=== PATIENT | male | born 1975 | race Caucasian/White ===

== ENCOUNTER 2016-06-09 10:09 | Emergency (ER) | payer BC ==
[2016-06-09] MEDS ORDERED: Ondansetron INJ* 2 MG/ML VIAL IV ONE (10:51)
[2016-06-09] MEDS ORDERED: Morphine INJ* 2 MG/ML 1 ML CARPUJECT IV ONE ×2 (10:53→11:46)
[2016-06-09 11:03] LABS: Hematocrit 46 % (42-52); Hemoglobin 15.4 g/dl (14.0-18.0); Mean Corpuscular HGB Conc 34 g/dl (31-36); Mean Corpuscular Hemoglobin 30 pg (27-31); Mean Corpuscular Volume 88 fL (80-94); Mean Platelet Volume 8 um3 (7.4-10.4); Red Blood Count 5.16 10^6/ul (4.0-5.4); Red Cell Distribution Width 13 % (10.5-15); White Blood Count 10.9 10^3/ul (3.5-10.8)
[2016-06-09 11:14] LABS: Albumin 4.6 g/dL (3.2-5.2); BUN/Creatinine Ratio 13.5 (8-20); Calcium 9.4 mg/dL (8.6-10.3); EGFR African American 121.1 (>60); EGFR Non-African American 94.2 (>60); Globulin 2.5 g/dL (2-4); Magnesium 1.9 mg/dL (1.9-2.7); Potassium 4.1 mmol/L (3.5-5.0); Total Bilirubin 0.6 mg/dL (0.2-1.0); Total Protein 7.1 g/dL (6.4-8.9)
--- NOTE | 2016-06-09 11:31 | ED ---
Upper Extremity Pain - HPI Summary HPI Summary: Patient arrives to ED after experiencing a seizure witness at the end by a co- worker in a [id number]. Patient states after the seizure which lasted only a minute or so, patient came out of the [id number] and mentioned he had a seizure and was unable to move his L arm. He stated he was immediately at a 10/ 10 pain. He had never had any surgeries on his extremities and denies anything similiar before. He has seizures at baseline (last one 3 months ago). He takes Keppra twice daily. He mentioned he does not take his medication regularly and often will forget days at a time. Today, he did not take his medication until immediately after his seizure. He denies hitting his head, LAM, facial trauma or eye/ear pain, chest discomfort, SOB, lower extremity weakness, confusion, or memory loss. - History of Current Complaint Chief Complaint: EDShoulderClavicleInj Stated Complaint: PAIN LEFT SHOULDER Hx Obtained From: Patient Onset/Duration: Started Minutes Ago Timing: Constant Severity Initially: Moderate Severity Currently: Severe Pain Location: Shoulder Character: Sharp Aggravating Factor(s): Movement, Lifting, Flexion, Extension, Internal/External Rotation, Abduction, Adduction Alleviating Factor(s): Nothing Associated Signs & Symptoms: Positive: Negative - Risk Factors Non-Orthopedic Risk Factor: Negative DVT Risk Factors: Negative Septic Arthritis Risk Factor: Negative - Allergies/Home Medications Allergies/Adverse Reactions: Allergies Allergy/AdvReac Type Severity Reaction Status Date / Time No Known Allergies Allergy Verified 06/09/16 10:14 PMH/Surg Hx/FS Hx/Imm Hx Previously Healthy: Yes Infectious Disease History: No Infectious Disease History: Denies: Traveled Outside the [place] in Last 30 Days - Social History Occupation: Employed Full-time Lives: With Family Alcohol Use: Occasionally Substance Use Type: Reports: None Smoking Status (MU): Light Every Day Tobacco Smoker Review of Systems - ROS Summary Review of Systems Summary: Constitutional: Patient denies fever, diaphoresis, activity change, appetite change, fatigue and unexpected weight change. HEENT: Head: The patient denies headaches or dizziness. Eyes: The patient denies diplopia, blurry vision, eye pain, eye discharge, photophobia. Throat: The patient denies sore throats or hoarseness. Cardiovascular: The patient denies chest pain, palpitations, syncope, night cramps, or orthostasis. Respiratory: The patient denies cough, sputum production, hemoptysis, dyspnea, wheezing. Genitourinary: Patient denies back pain. Denies other urinary symptoms. Muscles: The patient endorses myalgia, strain and feeling of weakness in L shoulder. Joints: The patient denies arthritis. Neurologic: The patient denies headache, loss of consciousness, facial asymmetry, weakness and numbness. Positive for seizure witness by co-worker. Psychiatric/Behavioral: Patient denies confusion and sleep disturbance. The patient is not nervous/anxious. All Other Systems Reviewed And Are Negative: Yes Physical Exam - Summary Physical Exam Summary: Appearance: WDWN Skin: Soft dry skin, no lesions. Nailbeds pink with no cyanosis or clubbing. Eyes: MADHURI, EOMI, Conjunctiva pink with no redness or exudates. ENT: Hearing grossly intact. Neck: Full range of motion. Thyroid not palpable. Trachea at midline. No lymphadenopathy. Pulm: Chest symmetrical expansion. No deformities on posterior chest wall. Lungs clear to auscultation and percussion, without adventitious sounds. CV: No JVD. No deformities on anterior chest wall. Heart soundsRRR, Normal S1 and single S2. No S3, S4, rubs, or murmurs. Carotids 2+ bilaterally without bruits. . exam not performed Musculoskeletal: Pain on flexion and extension of L elbow. Pain on abduction and adduction of L shoulder. Unable to abduct shoulder. Patient is more comfortable at adduction, internal rotation of shoulder. No cyanosis, clubbing , or edema. No spine tenderness. Gait normal. Neuro: Motor strength is 5/5 in lower extremities bilaterally. Motor strength 3/5 in L upper extremity, 5/5 in R upper extremity. Sensation intact to light touch, temperature, and pinprick. DTRs 2+ in biceps, triceps, quadriceps and ankles. Derm: No rashes or lesions noted. Vital Signs On Initial Exam: Initial Vitals Temp Pulse Resp BP Pulse Ox 97.9 F 83 16 151/100 100 06/09/16 10:14 06/09/16 10:14 06/09/16 10:14 06/09/16 10:14 06/09/16 10:14 - Ana Coma Scale Coma Scale Total: 15 Diagnostics - Vital Signs Vital Signs Temp Pulse Resp BP Pulse Ox 06/09/16 11:13 18 06/09/16 10:14 97.9 F 83 16 151/100 100 - Laboratory Lab Results: Lab Results 06/09/16 06/09/16 06/09/16 Range/Units 10:50 10:50 10:50 WBC 10.9 H (3.5-10.8) 10^3/ul RBC 5.16 (4.0-5.4) 10^6/ul Hgb 15.4 (14.0-18.0) g/dl Hct 46 (42-52) % MCV 88 (80-94) fL MCH 30 (27-31) pg MCHC 34 (31-36) g/dl RDW 13 (10.5-15) % Plt Count 259 (150-450) 10^3/ul MPV 8 (7.4-10.4) um3 Neut % (Auto) 85.4 H (38-83) % Lymph % (Auto) 6.8 L (25-47) % Routt % (Auto) 6.7 (1-9) % Eos % (Auto) 0.6 (0-6) % Baso % (Auto) 0.5 (0-2) % Absolute Neuts (auto) 9.3 H (1.5-7.7) 10^3/ul Absolute Lymphs (auto) 0.7 L (1.0-4.8) 10^3/ul Absolute Monos (auto) 0.7 (0-0.8) 10^3/ul Absolute Eos (auto) 0.1 (0-0.6) 10^3/ul Absolute Basos (auto) 0.1 (0-0.2) 10^3/ul Absolute Nucleated RBC 0 10^3/ul Nucleated RBC % 0 INR (Anticoag Therapy) 0.93 (0.89-1.11) Sodium 135 (133-145) mmol/L Potassium 4.1 (3.5-5.0) mmol/L Chloride 98 L (101-111) mmol/L Carbon Dioxide 31 (22-32) mmol/L Anion Gap 6 (2-11) mmol/L BUN 12 (6-24) mg/dL Creatinine 0.89 (0.67-1.17) mg/dL Est GFR ( Amer) 121.1 (>60) Est GFR (Non-Af Amer) 94.2 (>60) BUN/Creatinine Ratio 13.5 (8-20) Glucose 116 H (70-100) mg/dL Calcium 9.4 (8.6-10.3) mg/dL Magnesium 1.9 (1.9-2.7) mg/dL Total Bilirubin 0.60 (0.2-1.0) mg/dL AST 47 H (13-39) U/L ALT 44 (7-52) U/L Alkaline Phosphatase 53 (34-104) U/L Total Creatine Kinase 474 H (10-223) U/L Total Protein 7.1 (6.4-8.9) g/dL Albumin 4.6 (3.2-5.2) g/dL Globulin 2.5 (2-4) g/dL Albumin/Globulin Ratio 1.8 (1-3) Result Diagrams: 06/09/16 10:50 06/09/16 10:50 Lab Statement: Any lab studies that have been ordered have been reviewed, and results considered in the medical decision making process. Course/Dx - Course Course Of Treatment: Labs obtained. Xray of clavicle and shoulder. CT recommended by radiologist. CT showed posterior dislocation of the humeral head with small glenoid fracture. Follow up with Ortho recommended by attending physician. Patient to follow up with ortho in his area. Sling placed with recommendations to move the shoulder a few times daily to prevent frozen shoulder. Specific recommendations given. - Diagnoses Differential Diagnosis/HQI/PQRI: Positive: Fracture (Closed), Strain, Other - dislocation Provider Diagnoses: Posterior dislocation of left shoulder joint - Physician Notifications Instructed by Provider To: Have Pt Call For Appt. - call ortho in your area. Discharge - Discharge Plan Condition: Stable Disposition: HOME Patient Education Materials: Shoulder Dislocation Exercises (GEN), Shoulder Dislocation (ED) Additional Instructions: Yo have had a posterior dislocation with a small fracture. Ibuprofen 600mg three times daily for pain and inflammation. Follow up with orthopedic physician in your area.
--- NOTE | 2016-06-09 11:45 | RAD ---
INDICATION: Left shoulder injury. TECHNIQUE: 3 views of the left shoulder were obtained. FINDINGS: The bones are in normal alignment. There is focal flattening of the area of the humeral head suspicious for a fracture age-indeterminate. No arthritic change is noted. IMPRESSION: DEFORMITY OF THE HUMERAL HEAD SUSPICIOUS FOR AN UNDERLYING FRACTURE, AGE INDETERMINATE. RECOMMEND A CT OF THE SHOULDER FOR FURTHER EVALUATION.
[2016-06-09] MEDS ORDERED: HYDROmorphone INJ* 1 MG/ML CARPUJECT SYRINGE IV SLOW PU ONE (12:12)
--- NOTE | 2016-06-09 12:43 | RAD ---
INDICATION: Trauma, traumatic fracture of the left humerus. COMPARISON: Comparison is made with a prior x-ray study of the left shoulder of the same day. TECHNIQUE: Contiguous axial sections were obtained of the left shoulder. Images were reconstructed in the sagittal and coronal planes. FINDINGS: There is posterior dislocation of the humeral head and an impacted fracture of the anterior superior aspect of the humeral head which is impinged on the posterior aspect of the glenoid process of the scapula. The reverse Hill-Sachs fracture defect measures approximately 2.6 cm in diameter and 0.9 cm in depth. There are several small fracture fragments present most of which arise from the humeral head although there is also a fracture fragment adjacent to the posterior aspect of the glenoid process of the scapula likely arising from the scapula. The results of this exam were discussed with the referring clinician. IMPRESSION: 1. POSTERIOR DISLOCATION OF THE HUMERAL HEAD. 2. REVERSE HILL-SACHS FRACTURE OF THE HUMERAL HEAD WITH SEVERAL FRACTURE FRAGMENTS PRESENT. 3. FRACTURE FRAGMENT LIKELY ARISING FROM THE POSTERIOR ASPECT OF THE SCAPULA.
[2016-06-09] MEDS ORDERED: fentaNYL* 50 MCG/ML 2 ML VIAL (100 MCG VIAL) ONE (12:56)
[2016-06-09] MEDS ORDERED: Midazolam* 1 MG/ML 10 ML VIAL (10 MG) ONE (12:57)
[2016-06-09] MEDS ORDERED: Flumazenil* 0.1 MG/ML 5 ML MDV ONE (12:59)
[2016-06-09] MEDS ORDERED: Naloxone* 0.4 MG/ML 1 ML VIAL ONE (12:59)
[2016-06-09] MEDS ORDERED: Midazolam* 1 MG/ML 5 ML VIAL (5 MG) IV ONE (13:35)
--- NOTE | 2016-06-09 14:45 | RAD ---
Indication: Post reduction LEFT shoulder dislocation. Comparison: June 09, [address] Technique: External rotation AP and scapular Y views LEFT shoulder. REPORT AND IMPRESSION: Restored alignment at the glenohumeral joint. Small bone fragment related to the impaction fracture at the anteromedial margin of the humeral head is conspicuous posteriorly on the scapular Y view. Soft tissue swelling about the glenohumeral joint consistent with joint effusion.
[2016-06-09 15:56] VITALS: BP 148/91
--- NOTE | 2016-08-21 00:56 | ED ---
Jason Alcazar Matthew, scribed for Akin Solano MD on 06/09/16 at 1339 . Course/Dx - Diagnoses Provider Diagnoses: Posterior dislocation of left shoulder joint Procedures - Joint Reduction Joint Reduction Site: shoulder (L) Conscious Sedation: Yes - Versed 5mg Post Joint Reduction Film: joint reduced The documentation as recorded by the scribeJason Matthew accurately reflects the service I personally performed and the decisions made by , Akin Solano MD.
== END 2016-06-09 15:54 | disposition home or self-care (01) ==
LOC: ED 10:09
DX: S42.142A Displaced fracture of glenoid cavity of scapula, left shoulder, initial encounter for closed fracture (principal); S43.025A Posterior dislocation of left humerus, initial encounter; X58.XXXA Exposure to other specified factors, initial encounter; Y92.89 Other specified places as the place of occurrence of the external cause; Y99.0 Civilian activity done for income or pay; G40.909 Epilepsy, unspecified, not intractable, without status epilepticus; Z79.899 Other long term (current) drug therapy
CPT/HCPCS: 36415; 80053; 82550; 83735; 85025; 85610; 93005; 96374; 96375; 99284; J1170; J2250; J2270; J2310; J2405; J3010